=== PATIENT | female | born 1995 | race African-American/Black ===

== ENCOUNTER 2020-03-07 07:16 | Emergency (ER) | payer OTHER ==
[~2020-03-07] VITALS: Ht 175.3 cm; Wt 63.5 kg
--- NOTE | 2020-03-07 07:21 | NUR ---
Dr Victor at bedside
[2020-03-07] MEDS ORDERED: IBUPROFEN 600 MG TABLET ONE (07:29)
--- NOTE | 2020-03-07 07:53 | NUR ---
patient signed waiver form.
[2020-03-07] MEDS ORDERED: IBUPROFEN 600 MG TABLET PO ONE (08:00)
--- NOTE | 2020-03-07 08:41 | NUR ---
Patient discharged to home in stable condition. Written and verbal after care instructions given. Patient verbalizes understanding of instruction.
[2020-03-07 08:42] VITALS: BP 122/71
== END 2020-03-07 08:42 | disposition home or self-care (01) ==
LOC: ER 07:20
DX: S09.8XXA Other specified injuries of head, initial encounter (principal); W22.8XXA Striking against or struck by other objects, initial encounter; Y93.89 Activity, other specified; Y92.89 Other specified places as the place of occurrence of the external cause; Y99.8 Other external cause status
CPT/HCPCS: 70450-TC

== ENCOUNTER 2020-09-21 19:00 | Emergency (ER) | payer OTHER ==
[~2020-09-21] VITALS: Ht 175.3 cm; Wt 63.5 kg
[2020-09-21 19:50] VITALS: BP 129/93
[2020-09-21] MEDS ORDERED: IBUP-1955 PO (20:26)
== END 2020-09-21 20:42 | disposition home or self-care (01) ==
LOC: ER 19:03
DX: R51.9 Headache, unspecified (principal); Z79.899 Other long term (current) drug therapy